=== PATIENT | female | born 1995 | race Caucasian/White ===

== ENCOUNTER 2024-05-07 03:06 | Emergency (ER) | payer SELFPAY ==
[2024-05-07 03:15] VITALS: BP 112/91; PULSE 83; RESP 22; O2SAT 100; BMI 23.8
[2024-05-07 03:23] VITALS: TEMP 36.5
--- NOTE | 2024-05-07 04:09 | ED.ASTHMA ---
HPI - Asthma General Chief Complaint: Asthma Stated Complaint: SOB Time Seen by Provider: 05/07/24 03:39 Source: patient Mode of arrival: Ambulatory History of Present Illness HPI Narrative: Patient is a 28-year-old female history of asthma presenting to day with increasing shortness of breath. She recently moved here from [place] and has noted increased shortness of breath at times. 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 She has had coughing and shortness of breath for the last 6 hours or so however she woke up with difficulty breathing and came to the ED. She does not have an inhaler. No other concerns at this time Related Data Allergies Allergy/AdvReac Type Severity Reaction Status Date / Time No Known Drug Allergies Allergy Verified 05/07/24 03:20 Exam Initial Vital Signs Initial Vital Signs: Vital Signs Pulse Rate 83 05/07/24 03:15 Respiratory Rate 22 05/07/24 03:15 Blood Pressure 112/91 H 05/07/24 03:15 Pulse Oximetry 100 05/07/24 03:15 Oxygen Delivery Method Room Air 05/07/24 03:15 GENERAL: Alert pleasant 28 year female and in no acute distress. HEENT: Head atraumatic,EOMI, pupils reactive, face symmetric, moist mucous membranes CARDIOVASCULAR: Regular rate and rhythm without murmurs, rubs or gallops. RESPIRATORY: Breath sounds equal bilaterally, no wheezes rales or rhonchi. Assessment done after albuterol EXTREMITIES: Normal range of motion, no clubbing or edema. Neurovascularly intact NEUROLOGICAL: Alert and oriented x4.Normal gait and speech. Cranial nerves II through XII grossly intact. SKIN: Warm, dry, no laceration, no petechiae, no rashes or lesions. Course Orders Ordered: Discontinued Medications Albuterol (Al[facility]erol Hfa Prepack) [facility] Stop: 05/07/24 04:15 Last Admin: 05/07/24 04:31 Dose: 1 box Documented By: Albuterol/Ipratropium (Albuterol/Ipratropium 3 Ml Ampul) 3 ml INH NOW ONE Stop: 05/07/24 03:21 Prednisone (Prednisone 20 Mg Tablet) 40 mg PO NOW ONE Stop: 05/07/24 04:15 Last Admin: 05/07/24 04:31 Dose: 40 mg Documented By: AB Vital Signs Vital signs: Vital Signs - 8 hr 05/07/24 03:15 05/07/24 03:23 05/07/24 04:41 Temperature 97.7 F Pulse Rate 83 94 H Respiratory Rate 22 16 Blood Pressure 112/91 H 106/74 Pulse Oximetry 100 98 Oxygen Delivery Method Room Air Room Air MDM - Asthma MDM Narrative Medical decision making narrative: Healthy 28-year-old female presenting today with increasing shortness of breath. She was wheezing quite a bit when she came in given breathing treatments prior to my evaluation. Clear breath sounds and no respiratory distress afterwards. Although she reports it still feeling tight. She was not hypoxic no conversational dyspnea. Given prednisone and albuterol inhaler here in the ED. she was no respiratory distress speaks in full sentences without difficulty not hypoxic overall appears well Discharge Plan Departure Patient Disposition: Home Clinical Impression: Asthma with acute exacerbation Instructions: DI for Asthma -- Adult Activity Restrictions/Additional Instructions: *You have been diagnosed with asthma exacerbation *What to do: At this time increase activity as tolerated. I would use your albuterol inhaler regularly for the next 24-48 hours *Continue to take medications as directed Albuterol 1-2 puffs every 4 hours while awake if needed for coughing and shortness of breath *Follow up with your primary care provider in 2-3 days or call [phone] *Return to ER if you should have increasing shortness of breath chest pain tightness or any new, worsening or concerning symptoms Referrals: *Temp,ED* [Primary Care Provider] - Stand Alone Forms: Patient Portal/API/Survey
[2024-05-07] MEDS: predniSONE 20 MG TABLET 40 MG PO (04:31)
[2024-05-07] MEDS: ALBUTEROL HFA PREPACK 1 BOX MISC (04:31)
[2024-05-07 04:41] VITALS: BP 106/74; PULSE 94; RESP 16; O2SAT 98
[2024-05-07] MEDS: ALBUTEROL/IPRATROPIUM 3 ML AMPUL INH (04:50)
== END 2024-05-07 04:43 | disposition home or self-care (01) ==
PROVIDERS: Emergency Provider Emergency Medicine
DX: J45.901 Unspecified asthma with (acute) exacerbation (principal)
CPT/HCPCS: 94640; 99283